=== PATIENT | male | born 1990 ===

== ENCOUNTER 2017-11-24 20:11 | Emergency (ER) | payer SELFPAY ==
[~2017-11-24] VITALS: Ht 170.2 cm; Wt 93.8 kg
[2017-11-24 20:15] VITALS: TEMP 36.9; Ht 170.2 cm; Wt 93.8 kg
[2017-11-24] MEDS ORDERED: SODIUM CHLORIDE 0.9% 1000ML 1,000 ML IV STA (20:28)
--- NOTE | 2017-11-24 20:41 | EMERGENCY ROOM VISIT NOTE ---
History Report prepared by [place]: Josette Salgado Under the Supervision of: Dr. Patrick Alvares M.D. First contact with patient: 20:18 Chief Complaint: TESTICULAR PAIN Stated Complaint: TESTITLE PAIN History of Present Illness The patient is a 27 year old male who presents to the Emergency Room with complaints of constant right testicular pain starting yesterday. The patient states that he was just sitting with his friends when it started. He states that the pain is radiating into his right thigh and in his lower right abdomen. He states that he has tried taking Aleve with mild relief. The patient denies vomiting, fever, pain with urination, and trauma to the area. Source of History: patient Onset: yesterday Position: other (right testicle) Quality: other (radiating) Timing: constant Modifying Factors (Relieving): other (Aleve) Associated Symptoms: + abdominal pain, No fevers, No vomiting, No urinary symptoms Note: The patient complains of right thigh pain. The patient denies trauma to the area. Review of Systems See HPI for pertinent positives and negatives. A total of ten systems were reviewed and were otherwise negative. Past Medical & Surgical Medical Problems: (1) No Known Active Medical Problems No known medical problems. Family History Patient reports no known family medical history. Social History Smoking Status: Current Every Day Smoker Marital Status: Housing Status: lives with significant other Current/Historical Medications Scheduled Cholecalciferol (Vitamin D), 1 TAB PO DAILY Multivitamin (Multivitamin), 1 TAB PO DAILY Winter-3 Fatty Acids (Fish Oil), 1 CAP PO DAILY Thiamine Hcl (Vitamin B-1), 1 TAB PO DAILY Scheduled PRN Ibuprofen Tab (Motrin), 800 MG PO Q8H PRN for Pain Allergies Coded Allergies: No Known Allergies (Unverified , 11/24/17) Physical Exam Vital Signs Date Time Temp Pulse Resp B/P (MAP) Pulse Ox O2 Delivery O2 Flow Rate FiO2 11/24/17 23:35 11/24/17 22:51 62 17 112/59 99 Room Air 11/24/17 20:15 36.9 97 18 134/86 98 Room Air Physical Exam Physical Exam GENERAL: He is oriented to person, place, and time. He appears well-developed and well-nourished. He does not appear distressed. HENT: Exam performed. Head: Normocephalic and atraumatic. Right Ear: External ear normal. No mastoid tenderness. Left Ear: External ear normal. No mastoid tenderness. Mouth/Throat: The oropharynx is clear and moist. No trismus in the jaw. No dental abscesses or uvula swelling. No oropharyngeal exudate or tonsillar abscesses. EYES: Conjunctivae and EOM are normal. Pupils are equal, round, and reactive to light. Right eye exhibits no discharge. Left eye exhibits no discharge. No scleral icterus. NECK: Normal range of motion. Neck supple. No JVD present. No spinous process tenderness present. No carotid bruit present. No rigidity. No tracheal deviation and normal range of motion present. No Brudzinski's sign and no Kernig 's sign noted. CV: Normal rate, regular rhythm, normal heart sounds and intact distal pulses. There is no peripheral edema. Palpable radial pulses bue. PULM/CHEST: Effort normal and breath sounds normal. No respiratory distress. No stridor. He has no wheezes. He has no rales. Chest Wall: He exhibits no tenderness. ABD: The abdomen is soft. Bowel sounds are normal. He has no distension. No mass is present. There is no tenderness. There is no rebound, no guarding, no Max's sign and no tenderness at McBurney's point. Rovsig negative. : Pain on palpation of right testicle. Cremasteric reflex was present bilaterally. No genital lesions or urethral discharge. MUSC/SKEL: Normal range of motion. There is no peripheral edema, tenderness or deformity. LYMPH: No cervical adenopathy. NEURO: He is alert and oriented to person, place, and time. He has normal strength. No cranial nerve deficit or sensory deficit. Coordination and gait normal. GCS eye subscore is 4. GCS verbal subscore is 5. GCS motor subscore is 6. Cerebellar tests wnl. SKIN: Skin is warm and dry. He is not diaphoretic. PSYCH: He has a normal mood and affect. Behavior is normal. Judgment and thought content normal. Medical Decision & Procedures ER Provider Diagnostic Interpretation: Radiology results as stated below per my review and radiologist interpretation: (TESTICULAR) SCROTUM-CONT CLINICAL HISTORY: 27 years-old Male with r testicular pain. Acute right-sided scrotal pain COMPARISON STUDY: CT abdomen and pelvis of same day TECHNIQUE: Real-time, grayscale, and color Doppler sonography of the testes and scrotum is performed. Images are reviewed in the transverse and longitudinal planes. FINDINGS: RIGHT HEMISCROTUM: The right testis measures 4.1 x 2.4 x 3.1 cm and the parenchyma appears hyperemic and otherwise unremarkable. No intratesticular mass is seen. Arterial inflow is present within the right testicle. The right epididymal head appears normal. No varicocele or hydrocele is identified. LEFT HEMISCROTUM: The left testis measures 3.9 x 2.2 x 2.8 cm and the parenchyma appears unremarkable. No intratesticular mass is seen. Normal-appearing arterial inflow is present within the left testicle. The left epididymal head appears normal. No varicocele or hydrocele is identified. IMPRESSION: 1. Hyperemic right testicle suggests acute orchitis. 2. No evidence of testicular torsion or testicular mass lesion. 3. No hydrocele or varicocele identified. The above report was generated using voice recognition software. It may contain grammatical, syntax or spelling errors. Electronically signed by: Edu Adamson M.D. 11/24/2017 10:09 PM Dictated Date/Time: 11/24/2017 10:07 PM ABDOMEN AND PELVIS CT WITHOUT CONTRAST CT DOSE: 1853.71 mGy.cm HISTORY: Acute right lower quadrant and right-sided scrotal pain rlq and r testicular pain TECHNIQUE: Multiaxial CT images of the abdomen and pelvis were performed without contrast. A dose lowering technique was utilized adhering to the principles of ALARA. COMPARISON STUDY: None. FINDINGS: Lung bases appear generally clear. No pneumatosis or pneumoperitoneum. Imaged inferior cardiac chambers are unremarkable. Gallbladder, liver, spleen, pancreas and adrenal glands are unremarkable. Kidneys, ureters, bladder and prostate appear unremarkable. No renal calculi or hydronephrosis. Aorta and IVC appear unremarkable. No pathologically enlarged lymph nodes identified. No bowel obstruction or focal bowel wall thickening. Stool contents are noted about them. Appendix is air-filled and appears noninflamed and nondilated within the abdominal right lower quadrant. No ascites or mesenteric inflammatory changes. Small fat filled periumbilical hernia, diastases 1.2 cm. Moderate symmetric bilateral gynecomastia. Bones appear intact. IMPRESSION: 1. No acute intra-abdominal or intrapelvic abnormality identified. 2. No bowel obstruction or focal bowel wall thickening. Normal appendix. 3. No renal calculi or obstructive uropathy. 4. Bilateral gynecomastia. Electronically signed by: Edu Adamson M.D. 11/24/2017 9:18 PM Dictated Date/Time: 11/24/2017 9:11 PM Laboratory Results Test 11/24/17 20:35 11/24/17 20:47 11/24/17 23:35 Urine Color DK YELLOW Urine Appearance CLEAR (CLEAR) Urine pH 5.5 (4.5-7.5) Urine Specific [place] 1.034 (1.000-1.030) Urine Protein NEG (NEG) Urine Glucose (UA) NEG (NEG) Urine Ketones TRACE (NEG) Urine Occult Blood TRACE (NEG) Urine Nitrite NEG (NEG) Urine Bilirubin NEG (NEG) Urine Urobilinogen NEG (NEG) Urine Leukocyte Esterase NEG (NEG) Urine WBC (Auto) 1-5 /hpf (0-5) Urine RBC (Auto) 0-4 /hpf (0-4) Urine Hyaline Casts (Auto) 1-5 /lpf (0-5) Urine Epithelial Cells (Auto) 10-20 /lpf (0-5) Urine Bacteria (Auto) NEG (NEG) Bedside Hemoglobin 16.3 g/dl (14.0-18.0) Bedside Hematocrit 48 % (42-52) Bedside Sodium 140 mEq/L (135-144) Bedside Potassium 3.9 mEq/L (3.3-5.0) Bedside Chloride 103 mEq/L (101-112) Bedside Total CO2 25 mEq/l (24-31) Anion Gap 18.0 mmol/L (16-25) Bedside Blood Urea Nitrogen 19 mg/dl (7-18) Bedside Creatinine 0.7 mg/dl (0.6-1.3) Bedside Glucose (other) 101 mg/dl (70-99) Bedside Ionized Calcium (Kale) 1.16 mmol/l (1.12-1.32) Laboratory results reviewed by me Medications Administered Medications (Trade) Dose Ordered Sig/Tommie Route Start Time Stop Time Status Last Admin Dose Admin Sodium Chloride 1,000 ml @ 999 mls/hr Q1H1M STAT IV 11/24/17 20:28 11/24/17 21:28 DC 11/24/17 20:44 999 MLS/HR ED Course 2024: The patient was evaluated in room C1B. A complete history and physical exam was performed. 2027: Ordered NSS 1000 ml @ 999 mls/hr IV. 2244: I reevaluated the patient and his vitals are stable at this time. The patient states that his pain is under control. Patient labs and CT are within normal limits. His ultrasound of the scrotum showed Orchitis. The patient states that he was born in [place] and he is unsure if he received all his childhood immunizations. On repeat exam, he has no parotid swelling, pharyngeal exudates, or difficulty swallowing. We will send off reference labs to determine if he has acute mumps based on the ultrasound results. The patient states that he lives with children at home, but all were born in [facility] and are fully immunized. The patient will be discharged with Analgesia. DISCHARGE - Plan of care discussed with patient and questions answered. The patient was given both verbal and printed discharge instructions. The patient verbalized understanding and ability to comply. The patient is to seek outpatient follow up as noted in the discharge instructions. The patient verbalized understanding and ability to comply. The patient is discharged in stable condition. The patient was instructed to return for worsening symptoms. Medical Decision Patient labs and CT are within normal limits. His ultrasound of the scrotum showed Orchitis. The patient states that he was born in [place] and he is unsure if he received all his childhood immunizations. On repeat exam, he has no parotid swelling, pharyngeal exudates, or difficulty swallowing. We will send off reference labs to determine if he has acute mumps based on the ultrasound results. The patient states that he lives with children at home, but all were born in [facility] and are fully immunized. The patient will be discharged with Analgesia. DISCHARGE - Plan of care discussed with patient and questions answered. The patient was given both verbal and printed discharge instructions. The patient verbalized understanding and ability to comply. The patient is to seek outpatient follow up as noted in the discharge instructions. The patient verbalized understanding and ability to comply. The patient is discharged in stable condition. The patient was instructed to return for worsening symptoms. Medication Reconcilliation Current Medication List: was personally reviewed by me Blood Pressure Screening Patient's blood pressure: Normal blood pressure Blood pressure disposition: Did not require urgent referral Impression Primary Impression: Orchitis Additional Impression: Mumps Scribe Attestation The scribe's documentation has been prepared under my direction and personally reviewed by me in its entirety. I confirm that the note above accurately reflects all work, treatment, procedures, and medical decision making performed by me. The chart was completed utilizing [employer]urr Speech voice recognition software. Grammatical errors, random word insertions, pronoun errors, and incomplete sentences are an occasional consequence of this system due to software limitations, ambient noise, and hardware issues. Any formal questions or concerns about the content, text, or information contained within the body of this dictation should be directly addressed to the physician for clarification. Departure Information Dispostion Home / Self-Care Prescriptions Ibuprofen Tab (MOTRIN) 800 Mg Tab 800 MG PO Q8H Y for Pain, #30 TAB Prov: Patrick Alvares M.D. 11/24/17 Forms HOME CARE DOCUMENTATION FORM, IMPORTANT VISIT INFORMATION, WORK / SCHOOL INSTRUCTIONS Patient Instructions [facility] Additional Instructions Return to the emergency department if he started developing headache, fever greater 100.4, difficulty swallowing, throat pain, discharge from the penis, pain with urination, or your symptoms worsen. Problem Qualifiers Additional Impression: Mumps Mumps complication type: orchitis Qualified Codes: B26.0 - Mumps orchitis
[2017-11-24] MEDS ORDERED: OMEGCAP2 PO (20:50)
[2017-11-24] MEDS ORDERED: CHOL100010 PO (20:50)
[2017-11-24] MEDS ORDERED: MULT-506 PO (20:50)
[2017-11-24] MEDS ORDERED: THIA100T14 PO (20:50)
[2017-11-24 20:57] LABS: ISTAT CREATININE 0.7 mg/dl (0.6-1.3); ISTAT IONIZED CALCIUM 1.16 mmol/l (1.12-1.32); ISTAT POTASSIUM 3.9 mEq/L (3.3-5.0)
--- NOTE | 2017-11-24 21:20 | DIAGNOSTIC IMAGING REPORT ---
ABDOMEN AND PELVIS CT WITHOUT CONTRAST CT DOSE: 1853.71 mGy.cm HISTORY: Acute right lower quadrant and right-sided scrotal pain rlq and r testicular pain TECHNIQUE: Multiaxial CT images of the abdomen and pelvis were performed without contrast. A dose lowering technique was utilized adhering to the principles of ALARA. COMPARISON STUDY: None. FINDINGS: Lung bases appear generally clear. No pneumatosis or pneumoperitoneum. Imaged inferior cardiac chambers are unremarkable. Gallbladder, liver, spleen, pancreas and adrenal glands are unremarkable. Kidneys, ureters, bladder and prostate appear unremarkable. No renal calculi or hydronephrosis. Aorta and IVC appear unremarkable. No pathologically enlarged lymph nodes identified. No bowel obstruction or focal bowel wall thickening. Stool contents are noted about them. Appendix is air-filled and appears noninflamed and nondilated within the abdominal right lower quadrant. No ascites or mesenteric inflammatory changes. Small fat filled periumbilical hernia, diastases 1.2 cm. Moderate symmetric bilateral gynecomastia. Bones appear intact. IMPRESSION: 1. No acute intra-abdominal or intrapelvic abnormality identified. 2. No bowel obstruction or focal bowel wall thickening. Normal appendix. 3. No renal calculi or obstructive uropathy. 4. Bilateral gynecomastia. Electronically signed by: Edu Adamson M.D. 11/24/2017 9:18 PM Dictated Date/Time: 11/24/2017 9:11 PM
--- NOTE | 2017-11-24 22:11 | DIAGNOSTIC IMAGING REPORT ---
(TESTICULAR) SCROTUM-CONT CLINICAL HISTORY: 27 years-old Male with r testicular pain. Acute right-sided scrotal pain COMPARISON STUDY: CT abdomen and pelvis of same day TECHNIQUE: Real-time, grayscale, and color Doppler sonography of the testes and scrotum is performed. Images are reviewed in the transverse and longitudinal planes. FINDINGS: RIGHT HEMISCROTUM: The right testis measures 4.1 x 2.4 x 3.1 cm and the parenchyma appears hyperemic and otherwise unremarkable. No intratesticular mass is seen. Arterial inflow is present within the right testicle. The right epididymal head appears normal. No varicocele or hydrocele is identified. LEFT HEMISCROTUM: The left testis measures 3.9 x 2.2 x 2.8 cm and the parenchyma appears unremarkable. No intratesticular mass is seen. Normal-appearing arterial inflow is present within the left testicle. The left epididymal head appears normal. No varicocele or hydrocele is identified. IMPRESSION: 1. Hyperemic right testicle suggests acute orchitis. 2. No evidence of testicular torsion or testicular mass lesion. 3. No hydrocele or varicocele identified. The above report was generated using voice recognition software. It may contain grammatical, syntax or spelling errors. Electronically signed by: Edu Adamson M.D. 11/24/2017 10:09 PM Dictated Date/Time: 11/24/2017 10:07 PM
[2017-11-24] MEDS ORDERED: IBUP-1451 PO (22:49)
[2017-11-24 22:51] VITALS: BP 112/59; PULSE 62; O2SAT 99
== END 2017-11-24 23:41 | disposition home or self-care (01) ==
LOC: C.EDB 20:14 → C.EDC 23:41
DX: B26 Mumps (principal)